=== PATIENT | female | born 1960 | race Caucasian/White ===

== ENCOUNTER 2016-12-09 07:44 | Emergency (ER) | payer OTHER ==
[~2016-12-09] VITALS: Ht 165.1 cm; Wt 78.9 kg
[~2016-12-09 07:44] MED LIST: ACYC400T PO; AMLO5TAB2 PO; AMOX1TAB61 PO; GABA-587 PO; LURA40TA PO; OMEP40CA5 PO; SERT100T PO; TRIA1CAP3 PO
[2016-12-09 07:52] VITALS: BP 133/78
[2016-12-09] MEDS ORDERED: ACETAMINOPHEN 500 MG TABLET PO ONE (08:15)
--- NOTE | 2016-12-09 08:30 | PHYS DOC ---
Past Medical History Past Medical History: Anxiety, Bipolar, Depression, Fibromyalgia, Hypertension , Hepatitis, Migraines Additional Past Medical Histor: HEP C, PTSD Past Surgical History: Appendectomy, Hysterectomy Smoking: Less than 1pk/day Alcohol Use: Rarely Drug Use: None Adult General Chief Complaint Chief Complaint: ANKLE PROBLEM HPI HPI Patient is a 56 year old female who presents with left ankle pain after falling yesterday. She was carrying a storage bin when her leg gave out and she landed on her ankle. She has been able to bear weight minimally and walk with a limp. She denies any other injuries with the fall. She does not have any numbness or tingling in the toes. Her PCP is Dr. Cesar Chin. Review of Systems Review of Systems Constitutional: Denies fever or chills. [] Musculoskeletal: Denies back pain. Reports left ankle pain and swelling. Integument: Denies rash or skin lesions. Reports ecchymosis of the left ankle. Neurologic: Denies headache, focal weakness or sensory changes. [] Current Medications Current Medications Current Medications Medications (Trade) Dose Ordered Sig/Allison Start Time Stop Time Status Last Admin Dose Admin Acetaminophen (Tylenol) 1,000 mg 1X ONCE 12/09/16 08:15 12/09/16 08:16 DC Allergies Allergies Allergies Coded Allergies Type Severity Reaction Last Updated Verified Sulfa (Sulfonamide Antibiotics) Allergy Intermediate 03/06/16 Yes Physical Exam Physical Exam Constitutional: Well developed, well nourished, no acute distress, non-toxic appearance. [] HENT: Normocephalic, atraumatic, oropharynx moist. [] Eyes: PERRLA, EOMI, conjunctiva normal, no discharge. [] Skin: Warm, dry, no erythema, no rash. There is ecchymosis and edema over the left lateral malleolus without laceration or abrasion. Extremities: Left lateral malleolus tenderness, ROM intact, moderate left lateral malleolus edema. 2+ pedal pulses. Less than 2 second capillary refill. Light touch sensation intact distally. There is no tenderness over the base of the 5th metatarsal or proximal fibula. Neurologic: Alert and oriented X 3, normal motor function, normal sensory function, no focal deficits noted. [] Psychologic: Affect normal, judgement normal, mood normal. [] Current Patient Data Vital Signs Vital Signs Date Time Temp Pulse Resp B/P Pulse Ox O2 Delivery O2 Flow Rate FiO2 12/09/16 07:52 97.8 94 18 97 Room Air 97.8 EKG EKG [] Radiology/Procedures Radiology/Procedures REASON: fall PROCEDURE: ANKLE LEFT 3V EXAM: Left ankle 3 views. HISTORY: Fall with left ankle pain/swelling COMPARISON: None. FINDINGS: Three views of the left ankle are obtained. There is a small avulsion fracture fragment at the tip of the lateral malleolus with overlying soft tissue swelling. Alignment is normal. Joint spaces are maintained. IMPRESSION: 1. Small nondisplaced avulsion fracture at the tip of the lateral malleolus. Course & Med Decision Making Course & Med Decision Making Pertinent Labs and Imaging studies reviewed. (See chart for details) Patient presents with left ankle pain after fall yesterday. On exam, she has swelling, ecchymosis, and tenderness over the lateral malleolus. She is neurovascularly intact without evidence of compartment syndrome. X-ray shows an avulsion fracture of the distal fibula. She is placed in an Ortho-Glass stirrup splint by ED RN. I examined the patient after splint application and she remains neurovascularly intact without evidence of compartment syndrome. She is given crutches for assistance with ambulation. She is discharged home with prescription for Mobile for pain. She is given contact information for orthopedics for follow-up. Return precautions were discussed. She verbalizes understanding and agrees with plan. Dragon Disclaimer Dragon Disclaimer This electronic medical record was generated, in whole or in part, using a voice recognition dictation system. Departure Departure Impression: Primary Impression: Avulsion fracture of distal end of fibula Disposition: 01 HOME, SELF-CARE Condition: STABLE Referrals: CESAR CHIN MD (PCP) SCOUT METZGER MD Patient Instructions: Ankle Fracture, [id number], Cast or Splint Care, Easy- to-Read Additional Instructions: Your xray shows a broken bone in the left ankle. You have been placed in a splint. Please keep the splint in place until you follow up with the orthopedic doctor. Please keep the splint dry. Getting it wet will cause it to lose its shape. You may adjust the wrap around the splint if it gets too tight. Please use the provided crutches to help with walking to keep your weight off of the left leg. Please take the prescribed pain medication as directed. Do not drive or operate heavy machinery while taking pain medication. Please follow up with the orthopedic doctor listed below. Return to the emergency department if you have any new or concerning symptoms. Scripts Hydrocodone/Apap 5-325 (Mobile 5-325 Tablet)1 Each Tablet1 Tab PO PRN Q6HRS PRN PAIN #20 TAB Prov:BHAVANI WILHELM 12/09/16 BHAVANI WILHELM Dec 09, 2016 08:30
--- NOTE | 2016-12-09 08:33 | RAD ---
EXAM: Left ankle 3 views. HISTORY: Fall with left ankle pain/swelling COMPARISON: None. FINDINGS: Three views of the left ankle are obtained. There is a small avulsion fracture fragment at the tip of the lateral malleolus with overlying soft tissue swelling. Alignment is normal. Joint spaces are maintained. IMPRESSION: 1. Small nondisplaced avulsion fracture at the tip of the lateral malleolus.
[2016-12-09] MEDS ORDERED: HYDR-971 PO (08:49)
== END 2016-12-09 09:17 | disposition home or self-care (01) ==
LOC: ER 07:44
DX: S82.65XA Nondisplaced fracture of lateral malleolus of left fibula, initial encounter for closed fracture (principal); M79.7 Fibromyalgia; I10 Essential (primary) hypertension; G43.909 Migraine, unspecified, not intractable, without status migrainosus; F31.9 Bipolar disorder, unspecified; F17.200 Nicotine dependence, unspecified, uncomplicated; F43.10 Post-traumatic stress disorder, unspecified; Z86.19 Personal history of other infectious and parasitic diseases; Z90.710 Acquired absence of both cervix and uterus; Z88.2 Allergy status to sulfonamides; W18.39XA Other fall on same level, initial encounter; Y93.89 Activity, other specified; Y99.8 Other external cause status; Y92.89 Other specified places as the place of occurrence of the external cause
CPT/HCPCS: 29515; 73610; 99284-25

== ENCOUNTER 2016-12-17 14:17 | Emergency (ER) | payer OTHER ==
[~2016-12-17] VITALS: Ht 165.1 cm; Wt 79.4 kg
[~2016-12-17 14:17] MED LIST changes: +HYDR-971 PO
[2016-12-17 14:19] VITALS: BP 121/87
--- NOTE | 2016-12-17 15:11 | ED.ADGEN ---
Past Medical History Past Medical History: Anxiety, Bipolar, Depression, Fibromyalgia, Hypertension , Hepatitis, Migraines Additional Past Medical Histor: HEP C, PTSD Past Surgical History: Appendectomy, Hysterectomy Alcohol Use: Rarely Drug Use: None Physician Documentation Physician Documentation LWOT before I was able to see patient. DEVONTE GREEN MD Dec 17, 2016 15:11
== END 2016-12-17 15:11 | disposition left against medical advice (07) ==
LOC: ER 14:17
DX: G43.909 Migraine, unspecified, not intractable, without status migrainosus (principal); Z53.21 Procedure and treatment not carried out due to patient leaving prior to being seen by health care provider

== ENCOUNTER 2016-12-17 16:45 | Emergency (ER) | payer OTHER ==
[2016-12-17 14:19] VITALS: BP 121/87
== END 2016-12-17 17:32 | disposition left against medical advice (07) ==
LOC: ER 16:45
DX: G43.909 Migraine, unspecified, not intractable, without status migrainosus (principal); Z53.21 Procedure and treatment not carried out due to patient leaving prior to being seen by health care provider

== ENCOUNTER 2016-12-28 15:30 | Emergency (ER) | payer OTHER ==
[~2016-12-28] VITALS: Ht 165.1 cm; Wt 81.6 kg
[2016-12-28] MEDS ORDERED: DIPHENHYDRAMINE 50 MG/ML VIAL IVP ONE (16:45)
[2016-12-28] MEDS ORDERED: KETOROLAC TROMETHAMINE 30 MG/ML SYRINGE. IV ONE (16:45)
[2016-12-28] MEDS ORDERED: DEXAMETHASONE SOD PHOS 20 MG/5 ML VIAL. IV ONE (16:45)
[2016-12-28] MEDS ORDERED: METOCLOPRAMIDE HCL 10 MG/2 ML VIAL. IV ONE (16:45)
[2016-12-28] MEDS ORDERED: IV NORMAL SALINE 1000ML BAG 1,000 ML IV ONE (16:45)
[2016-12-28 17:37] VITALS: BP 138/65
--- NOTE | 2016-12-28 17:41 | PHYS DOC ---
Past Medical History Past Medical History: Anxiety, Bipolar, Depression, Fibromyalgia, Hypertension , Hepatitis, Migraines Additional Past Medical Histor: HEP C, PTSD Past Surgical History: Appendectomy, Hysterectomy Alcohol Use: Rarely Drug Use: None Adult General Chief Complaint Chief Complaint: HEADACHE HPI HPI This is a 56-year-old female who is presenting with severe migraine headache with typical features of her usual migraine headaches in which she states she has pain in her bilateral temporal area and has photophobia with nausea and vomiting. She states her headache has been there for the last several days. She tried taking 800 mg of Motrin every 6 hours without relief. Upon my initial evaluation, she states her pain is a 9 out of 10 but does not appear to be in any acute distress. Review of Systems Review of Systems Constitutional: Denies fever or chills [] Eyes: Denies change in visual acuity, redness, or eye pain [] HENT: Denies nasal congestion or sore throat [] Respiratory: Denies cough or shortness of breath [] Cardiovascular: No additional information not addressed in HPI [] GI: Denies abdominal pain, nausea, vomiting, bloody stools or diarrhea [] : Denies dysuria or hematuria [] Musculoskeletal: Denies back pain or joint pain [] Integument: Denies rash or skin lesions [] Neurologic: Has headache, denies focal weakness or sensory changes [] Endocrine: Denies polyuria or polydipsia [] Current Medications Current Medications Current Medications Medications (Trade) Dose Ordered Sig/Allison Start Time Stop Time Status Last Admin Dose Admin Dexamethasone Sodium Phosphate (Decadron) 10 mg 1X ONCE 12/28/16 16:45 12/28/16 16:46 DC 12/28/16 17:21 10 MG Diphenhydramine HCl (Benadryl) 25 mg 1X ONCE 12/28/16 16:45 12/28/16 16:46 DC 12/28/16 17:18 25 MG Ketorolac Tromethamine (Toradol) 30 mg 1X ONCE 12/28/16 16:45 12/28/16 16:46 DC 12/28/16 17:20 30 MG Metoclopramide HCl 10 mg 10 mg 1X ONCE 12/28/16 16:45 12/28/16 16:46 DC 12/28/16 17:18 10 MG Sodium Chloride (Iv Sodium Chloride 0.9% 1000ml Bag) 1,000 ml @ 1,000 mls/hr 1X ONCE 12/28/16 16:45 12/28/16 17:44 12/28/16 17:16 1,000 MLS/HR Allergies Allergies Allergies Coded Allergies Type Severity Reaction Last Updated Verified Sulfa (Sulfonamide Antibiotics) Allergy Intermediate 03/06/16 Yes Physical Exam Physical Exam Constitutional: Well developed, well nourished, no acute distress, non-toxic appearance. [] HENT: Normocephalic, atraumatic, bilateral external ears normal, oropharynx moist, no oral exudates, nose normal. [] Eyes: PERRLA, EOMI, conjunctiva normal, no discharge. [] Neck: Normal range of motion, no tenderness, supple, no stridor. [] Cardiovascular:Heart rate regular rhythm, no murmur [] Lungs & Thorax: Bilateral breath sounds clear to auscultation [] Abdomen: Bowel sounds normal, soft, no tenderness, no masses, no pulsatile masses. [] Skin: Warm, dry, no erythema, no rash. [] Back: No tenderness, no CVA tenderness. [] Extremities: No tenderness, no cyanosis, no clubbing, ROM intact, no edema. [] Neurologic: Alert and oriented X 3, normal motor function, normal sensory function, no focal deficits noted. [] Psychologic: Affect normal, judgement normal, mood normal. [] Current Patient Data Vital Signs Vital Signs Date Time Temp Pulse Resp B/P Pulse Ox O2 Delivery O2 Flow Rate FiO2 12/28/16 15:40 98.1 79 18 147/102 96 Room Air 98.1 EKG EKG [] Radiology/Procedures Radiology/Procedures [] Course & Med Decision Making Course & Med Decision Making Pertinent Labs and Imaging studies reviewed. (See chart for details) 56 yo female who presents with usual migraine type headache that she's had before. A migraine cocktail was given including a dose of IV Toradol, IV Benadryl, IV Reglan and IV Decadron with fluid bolus. On my reassessment, the patient's pain is vastly improved and she feels couple going home. I will be discharging her home with strict instruction remain in a quiet dark room for the next 24 hours and to continue taking Motrin for any headache symptoms. Dragon Disclaimer Dragon Disclaimer This electronic medical record was generated, in whole or in part, using a voice recognition dictation system. Departure Departure Impression: Primary Impression: Migraine Disposition: 01 HOME, SELF-CARE Admitting Physician: Other Condition: STABLE Referrals: CESAR RUVALCABA MD (PCP) Patient Instructions: Migraine Headache, [id number] Additional Instructions: Please follow up with your primary doctor in the next 2-3 days for your migraine headache. Continue to take motrin for your headache. Return to the ER if you develop any worsening of your symptoms. KENJI NUNN DO Dec 28, 2016 17:41
== END 2016-12-28 17:49 | disposition home or self-care (01) ==
LOC: ER 15:30
DX: G43.909 Migraine, unspecified, not intractable, without status migrainosus (principal); F43.10 Post-traumatic stress disorder, unspecified; F31.9 Bipolar disorder, unspecified; F41.9 Anxiety disorder, unspecified; I10 Essential (primary) hypertension; M79.7 Fibromyalgia; Z86.19 Personal history of other infectious and parasitic diseases; Z90.710 Acquired absence of both cervix and uterus; Z90.49 Acquired absence of other specified parts of digestive tract; Z88.2 Allergy status to sulfonamides
CPT/HCPCS: 96361; 96374; 96375; 99284; J1100; J1200; J1885; J2765; J7030

== ENCOUNTER → 2017-01-06 | Outpatient (CLI) | payer OTHER ==
[2016-12-28 17:37] VITALS: BP 138/65
--- NOTE | 2017-01-06 14:42 | KCIC ---
PROCEDURE CT of the left wrist HISTORY Left wrist pain chronically. Prior surgery 1997. COMPARISON None TECHNIQUE Standard noncontrast imaging is performed. Exposure: One or more of the following individualized dose reduction techniques were utilized for this exam: 1. Automated exposure control. 2. Adjustment of the mA and/or kV according to patient size. 3. Use of iterative reconstruction technique. FINDINGS No evidence of aggressive bone destruction. No acute fracture. Joint spaces and alignment appear intact. No obvious soft tissue abnormality. There is a small lucency at the ulnar styloid as well as a small lucency within the 1st metacarpal head, most compatible with benign cysts. Mild spurring at the 1st metacarpophalangeal joint IMPRESSION No acute abnormality. Electronically signed by: Dann Pleitez MD (Jan 06, 2017 14:41:03)
== END | disposition home or self-care (01) ==
LOC: KCIC CT 10:01
PROVIDERS: ATTEND Family Medicine
DX: M25.532 Pain in left wrist (principal)
CPT/HCPCS: 73200

== ENCOUNTER 2017-04-04 17:43 | Inpatient (IN) | payer OTHER ==
[~2017-04-04] VITALS: Ht 165.1 cm; Wt 93.2 kg
[2017-04-04] MEDS ORDERED: NALOXONE 0.4 MG/ML VIAL. IV ONE (18:00)
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
[2017-04-04 18:55] LABS: BASO # 0.1 x10^3/uL (0.0-0.2); BASO % 1 % (0-3); EOS % 1 % (0-3); HEMOGLOBIN 12.4 g/dL (12.0-15.5); LYMPH % 39 % (24-48); MEAN CORPUSCULAR HEMOGLOBIN 35 pg (25-35); MEAN CORPUSCULAR HGB CONC 35 g/dL (31-37); MEAN CORPUSCULAR VOLUME 98 fL (79-100); MONO % 7 % (0-9); NEUT % 52 % (31-73); PLATELET COUNT 474 x10^3/uL (140-400); RED BLOOD COUNT 3.57 x10^6/uL (3.50-5.40); RED CELL DISTRIBUTION WIDTH 14.4 % (11.5-14.5); WHITE BLOOD COUNT 7.7 x10^3/uL (4.0-11.0)
[2017-04-04 19:07] LABS: CALCIUM 8.7 mg/dL (8.5-10.1); CREATININE 1.7 mg/dL (0.6-1.0); GFR 31.2; POTASSIUM 4.5 mmol/L (3.5-5.1)
[2017-04-04 19:12] LABS: ALBUMIN 3.6 g/dL (3.4-5.0); ALBUMIN/GLOBULIN RATIO 1.1 (1.0-1.7); MAGNESIUM 2.1 mg/dL (1.8-2.4); TOTAL BILIRUBIN 0.2 mg/dL (0.2-1.0)
[2017-04-04] MEDS ORDERED: ONDANSETRON PF 4 MG/2 ML VIAL. ONE (19:34)
[2017-04-04] MEDS ORDERED: IV NORMAL SALINE 1000ML BAG 1,000 ML IV ONE (19:45)
[2017-04-04] MEDS ORDERED: ONDANSETRON PF 4 MG/2 ML VIAL. IV ONE (19:45)
--- NOTE | 2017-04-04 20:18 | RAD ---
CT HEAD INDICATION: Altered mental status COMPARISON: None Available. TECHNIQUE: 5 mm contiguous axial images were obtained from the skull base to the vertex in both bone and soft tissue algorithm. Exposure: One or more of the following individualized dose reduction techniques were utilized for this examination: 1. Automated exposure control 2. Adjustment of the mA and/or kV according to patient size 3. Use of iterative reconstruction technique FINDINGS: Mild bilateral periventricular white matter hypodensities likely chronic small vessel ischemic disease. No evidence of acute intracranial hemorrhage. No extra-axial fluid collections. No mass effect or midline shift. Ventricular size is appropriate. Basal cisterns are patent. No fractures identified.Daniels-white differentiation is preserved.Globes and orbits are within normal limits. Paranasal sinuses and mastoid air cells are clear. IMPRESSION: No acute intracranial findings. Electronically signed by: Kaushal Good MD (04/04/2017 8:14 PM)
--- NOTE | 2017-04-04 21:02 | ACF ---
Admission Forms Criteria PAIN MANAGEMENT [facility] Clinical Indications for Admission to Inpatient Care (Place 'X' for any and all applicable criteria): Hospital admission is needed for appropriate care of the patient because of 1 or more of the following are present (1)(2)(3)(4)(5): [ ]I. Severe pain requiring acute inpatient management as indicated by 1 or more of the following (2)(5)(10): [ ]a) Continuous or frequent (eg, every 2 to 4 hours) parenteral analgesics required [A] [ ]b) Necessity (ie, alternative approaches not effective) for analgesic regimen that can only be performed or initiated in inpatient setting [X]II. Pain causing debilitation to the point of inability to function or be supported at any other level of care [ ]III. Severe side effects from pain medications as indicated by ANY ONE of the following (12)(13)(14)(15): [ ]a) Uncontrollable seizures [ ]b) Cardiac arrhythmias of immediate concern [ ]c) Dehydration that is severe or persistent [ ]d) Vomiting that is severe or persistent [ ]e) Altered mental status that is severe or persistent [ ]f) Obstipation with inadequate GI function to maintain nutrition The original [employer] content created by [employer] has been revised. The portions of the content which have been revised are identified through the use of italic text or in bold, and [employer] has neither reviewed nor approved the modified material. All other unmodified content is copyright [employer]. Please see references footnoted in the original [employer] edition 2016 Admission Criteria Met?: Yes SHAYE JOHNS Apr 04, 2017 21:02
[2017-04-04] MEDS ORDERED: NALOXONE 0.4 MG/ML VIAL. IV PRN (21:30)
[2017-04-04] MEDS ORDERED: ONDANSETRON PF 4 MG/2 ML VIAL. IV PRN (21:30)
[2017-04-04 21:51] VITALS: BP 93/45
[2017-04-04] MEDS: IV NORMAL SALINE 1000ML BAG 1,000 ML IV SCH (22:08)
[2017-04-04] MEDS: fentaNYL PF VIAL 100 MCG/2 ML VIAL IV PRN (22:09)
[2017-04-04 22:22] LABS: BILIRUBIN,URINE NEGATIVE (NEG); GLUCOSE,URINE NEGATIVE (NEG); NITRITE,URINE NEGATIVE (NEG); PH,URINE 5.5; PROTEIN,URINE NEGATIVE (NEG-TRACE); UROBILINOGEN,URINE 0.2 mg/dL (0.2 mg/dL)
[2017-04-04 22:30] LABS: BACTERIA,URINE FEW /HPF (0-FEW); RBC,URINE 0 /HPF (0-2); SQUAMOUS EPITHELIAL CELL,UR FEW /LPF; WBC,URINE OCC /HPF (0-4)
[2017-04-04 22:31] LABS: BARBITURATES NEG (NEG); BENZODIAZEPINES POS (NEG); CANNABINOIDS POS (NEG); COCAINE NEG (NEG); METHADONE NEG (NEG); OPIATES POS (NEG); PHENCYCLIDINE NEG (NEG)
[2017-04-04 23:00] VITALS: BP 68/44
[2017-04-05] VITALS (8 sets, daily range): BP systolic 87–167; BP diastolic 52–91
[2017-04-05] MEDS ORDERED: MIRT30TA3 PO (00:57)
[2017-04-05] MEDS ORDERED: OXYC-323 PO (00:57)
[2017-04-05] MEDS ORDERED: LOSA50TA6 PO (00:57)
[2017-04-05] MEDS ORDERED: ONDA4TAB12 PO (00:57)
[2017-04-05] MEDS ORDERED: POLY255P PO (00:57)
[2017-04-05] MEDS ORDERED: AMLO5TAB2 PO (00:57)
[2017-04-05] MEDS ORDERED: BACL10TA PO (00:57)
[2017-04-05] MEDS ORDERED: HYDR2TAB31 PO (00:57)
[2017-04-05] MEDS ORDERED: IBUP-1060 PO (00:57)
[2017-04-05] MEDS ORDERED: NORT25CA PO (01:32)
[2017-04-05] MEDS: fentaNYL PF VIAL 100 MCG/2 ML VIAL IV PRN ×2 (04:20→08:34)
--- NOTE | 2017-04-05 06:40 | EKG ---
[facility] [address] [place] [address] Test Date: 2017-04-04 Test Time: 18:11:21 Pat Name: BALTAZAR GOODEN Department: Room: Gender: F Ux Specialist: : 1960 Requested By: LOUIS MAR Order Number: [id number] Reading MD: Measurements Intervals [place] Rate: 73 P: 34 MO: 138 QRS: 16 QRSD: 86 T: 7 QT: 352 QTc: 391 Interpretive Statements SINUS RHYTHM QRS(T) CONTOUR ABNORMALITY CANNOT RULE OUT ANTEROSEPTAL MYOCARDIAL DAMAGE RI6.01 Unconfirmed report No previous ECG available for comparison
--- NOTE | 2017-04-05 08:03 | RAD ---
Indication difficulty breathing. A single view of the chest was obtained. No prior plain film imaging of the chest is available. Heart size and pulmonary vessels are normal. The lungs are clear of acute infiltrates. Significant pleural fluid is not seen. There is no pneumothorax. The visualized bony structures appear grossly intact. IMPRESSION: No acute or focal process is seen in the chest
[2017-04-05] MEDS: IV NORMAL SALINE 1000ML BAG 1,000 ML IV SCH (08:31)
--- NOTE | 2017-04-05 08:51 | PDOC1 ---
History and Physical Date of Admission Date of Admission DATE: 04/05/17 TIME: 08:49 Current Problem List Problem List Problems Medical Problems: (1) Dehydration Status: Acute (2) Intractable pain Status: Acute (3) Narcotic poisoning Status: Acute Problems: Current Medications Current Medications Current Medications Naloxone HCl (Narcan) 0.4 mg 1X ONCE IV Last administered on 04/04/17 19:23; Start 04/04/17 at 18:00; Stop 04/04/17 at 18:10; Status DC Ondansetron HCl (Zofran) 4 mg 1X ONCE IV Last administered on 04/04/17 19:45; Start 04/04/17 at 19:45; Stop 04/04/17 at 19:46; Status DC Ondansetron HCl (Zofran) 4 mg STK-MED ONCE .ROUTE ; Start 04/04/17 at 19:34; Stop 04/04/17 at 19:35; Status DC Sodium Chloride 1,000 ml @ 1,000 mls/hr 1X ONCE IV Last administered on 19:45; Start 04/04/17 at 19:45; Stop 04/04/17 at 20:44; Status DC Ondansetron HCl (Zofran) 4 mg PRN Q8HRS PRN IV NAUSEA/VOMITING; Start 04/04/17 at 21:30; Stop 04/05/17 at 21:29 Fentanyl Citrate (Fentanyl 2ml Vial) 25 mcg PRN Q1HR PRN IV PAIN Last administered on 04/05/17 08:34; Start 04/04/17 at 21:30; Stop 04/05/17 at 21:29 Sodium Chloride 1,000 ml @ 100 mls/hr Q10H IV Last administered on 04/05/17 08 :31; Start 04/04/17 at 21:30; Stop 04/05/17 at 21:29 Naloxone HCl (Narcan) 0.4 mg PRN Q2MIN PRN IV SEE COMMENTS; Start 04/04/17 at 21 :30 Ondansetron HCl (Zofran Odt) 4 mg PRN Q6HRS PRN PO NAUSEA; Start 04/05/17 at 08: 45 Ibuprofen (Motrin) 800 mg PRN Q8HRS PRN PO INFLAMMATION; Start 04/05/17 at 09:00 Pantoprazole Sodium (Protonix) 40 mg DAILYAC PO ; Start 04/05/17 at 09:30 Sertraline HCl (Zoloft) 100 mg DAILY PO ; Start 04/05/17 at 09:30 Hydromorphone HCl (Dilaudid) 2 mg PRN Q4HRS PRN PO PAIN; Start 04/05/17 at 08:45 Active Scripts Active Reported Nortriptyline Hcl 25 Mg Capsule 1 Cap PO DAILY 30 Days Ondansetron Odt (Ondansetron) 4 Mg Tab.rapdis 1 Tab PO PRN Q6-8HRS Percocet 5-325 Mg Tablet (Oxycodone/Acetaminophen) 1 Each Tablet 1 Tab PO PRN Q6HRS PRN Mirtazapine 30 Mg Tablet 30 Mg PO DAILY PRN Ibuprofen 800 Mg Tablet 800 Mg PO PRN Q6HRS PRN Baclofen 10 Mg Tablet 10 Mg PO TID Polyethylene Glycol 3350 255 Gm Powder 17 Gm PO DAILY Amlodipine Besylate 5 Mg Tablet 5 Mg PO DAILY Losartan Potassium 50 Mg Tablet 50 Mg PO DAILY Dilaudid (Hydromorphone Hcl) 2 Mg Tablet 4 Mg PO Q3HRS Zoloft (Sertraline Hcl) 100 Mg Tablet 100 Mg PO DAILY Triamterene-Hctz 37.5-25 Mg Cp (Triamterene/Hydrochlorothiazid) 1 Each Capsule 1 Cap PO DAILY Acyclovir 400 Mg Tablet 1 Tab PO BID Omeprazole 40 Mg Capsule.dr 1 Cap PO DAILY Gabapentin 400 Mg Capsule 600 Mg PO TID Allergies Allergies: Coded Allergies: Sulfa (Sulfonamide Antibiotics) (Verified Allergy, Intermediate, 03/06/16) Vitals Vitals Vital Signs Date Time Temp Pulse Resp B/P (MAP) Pulse Ox O2 Delivery O2 Flow Rate FiO2 04/05/17 08:34 65 99/52 (68) 95 Nasal Cannula 3.0 04/05/17 07:00 97.9 16 97.9 Labs Labs Laboratory Tests Test 04/04/17 18:48 04/04/17 22:15 White Blood Count 7.7 x10^3/uL (4.0-11.0) Red Blood Count 3.57 x10^6/uL (3.50-5.40) Hemoglobin 12.4 g/dL (12.0-15.5) Hematocrit 35.0 % (36.0-47.0) Mean Corpuscular Volume 98 fL (79-100) Mean Corpuscular Hemoglobin 35 pg (25-35) Mean Corpuscular Hemoglobin Concent 35 g/dL (31-37) Red Cell Distribution Width 14.4 % (11.5-14.5) Platelet Count 474 x10^3/uL (140-400) Neutrophils (%) (Auto) 52 % (31-73) Lymphocytes (%) (Auto) 39 % (24-48) Monocytes (%) (Auto) 7 % (0-9) Eosinophils (%) (Auto) 1 % (0-3) Basophils (%) (Auto) 1 % (0-3) Neutrophils # (Auto) 4.0 x10^3uL (1.8-7.7) Lymphocytes # (Auto) 3.0 x10^3/uL (1.0-4.8) Monocytes # (Auto) 0.5 x10^3/uL (0.0-1.1) Eosinophils # (Auto) 0.1 x10^3/uL (0.0-0.7) Basophils # (Auto) 0.1 x10^3/uL (0.0-0.2) Sodium Level 137 mmol/L (136-145) Potassium Level 4.5 mmol/L (3.5-5.1) Chloride Level 102 mmol/L (98-107) Carbon Dioxide Level 26 mmol/L (21-32) Anion Gap 9 (6-14) Blood Urea Nitrogen 16 mg/dL (7-20) Creatinine 1.7 mg/dL (0.6-1.0) Estimated GFR (Cockcroft-Gault) 31.2 BUN/Creatinine Ratio 9 (6-20) Glucose Level 95 mg/dL (70-99) Calcium Level 8.7 mg/dL (8.5-10.1) Magnesium Level 2.1 mg/dL (1.8-2.4) Total Bilirubin 0.2 mg/dL (0.2-1.0) Aspartate Amino Transf (AST/SGOT) 14 U/L (15-37) Alanine Aminotransferase (ALT/SGPT) 20 U/L (14-59) Alkaline Phosphatase 91 U/L (46-116) Total Protein 7.0 g/dL (6.4-8.2) Albumin 3.6 g/dL (3.4-5.0) Albumin/Globulin Ratio 1.1 (1.0-1.7) Urine Collection Type Unknown Urine Color Yellow Urine Clarity Clear Urine pH 5.5 Urine Specific [place] 1.010 Urine Protein Negative mg/dL (NEG-TRACE) Urine Glucose (UA) Negative mg/dL (NEG) Urine Ketones (Stick) Negative mg/dL (NEG) Urine Blood Negative (NEG) Urine Nitrite Negative (NEG) Urine Bilirubin Negative (NEG) Urine Urobilinogen Dipstick 0.2 mg/dL (0.2 mg/dL) Urine Leukocyte Esterase Negative (NEG) Urine RBC 0 /HPF (0-2) Urine WBC Occ /HPF (0-4) Urine Squamous Epithelial Cells Few /LPF Urine Bacteria Few /HPF (0-FEW) Urine Hyaline Casts Few /HPF Urine Mucus Slight /LPF Urine Opiates Screen Pos (NEG) Urine Methadone Screen Neg (NEG) Urine Barbiturates Neg (NEG) Urine Phencyclidine Screen Neg (NEG) Urine Amphetamine/Methamphetamine Neg (NEG) Urine Benzodiazepines Screen Pos (NEG) Urine Cocaine Screen Neg (NEG) Urine Cannabinoids Screen Pos (NEG) Urine Ethyl Alcohol Neg (NEG) Laboratory Tests Test 04/04/17 18:48 04/04/17 22:15 White Blood Count 7.7 x10^3/uL (4.0-11.0) Red Blood Count 3.57 x10^6/uL (3.50-5.40) Hemoglobin 12.4 g/dL (12.0-15.5) Hematocrit 35.0 % (36.0-47.0) Mean Corpuscular Volume 98 fL (79-100) Mean Corpuscular Hemoglobin 35 pg (25-35) Mean Corpuscular Hemoglobin Concent 35 g/dL (31-37) Red Cell Distribution Width 14.4 % (11.5-14.5) Platelet Count 474 x10^3/uL (140-400) Neutrophils (%) (Auto) 52 % (31-73) Lymphocytes (%) (Auto) 39 % (24-48) Monocytes (%) (Auto) 7 % (0-9) Eosinophils (%) (Auto) 1 % (0-3) Basophils (%) (Auto) 1 % (0-3) Neutrophils # (Auto) 4.0 x10^3uL (1.8-7.7) Lymphocytes # (Auto) 3.0 x10^3/uL (1.0-4.8) Monocytes # (Auto) 0.5 x10^3/uL (0.0-1.1) Eosinophils # (Auto) 0.1 x10^3/uL (0.0-0.7) Basophils # (Auto) 0.1 x10^3/uL (0.0-0.2) Sodium Level 137 mmol/L (136-145) Potassium Level 4.5 mmol/L (3.5-5.1) Chloride Level 102 mmol/L (98-107) Carbon Dioxide Level 26 mmol/L (21-32) Anion Gap 9 (6-14) Blood Urea Nitrogen 16 mg/dL (7-20) Creatinine 1.7 mg/dL (0.6-1.0) Estimated GFR (Cockcroft-Gault) 31.2 BUN/Creatinine Ratio 9 (6-20) Glucose Level 95 mg/dL (70-99) Calcium Level 8.7 mg/dL (8.5-10.1) Magnesium Level 2.1 mg/dL (1.8-2.4) Total Bilirubin 0.2 mg/dL (0.2-1.0) Aspartate Amino Transf (AST/SGOT) 14 U/L (15-37) Alanine Aminotransferase (ALT/SGPT) 20 U/L (14-59) Alkaline Phosphatase 91 U/L (46-116) Total Protein 7.0 g/dL (6.4-8.2) Albumin 3.6 g/dL (3.4-5.0) Albumin/Globulin Ratio 1.1 (1.0-1.7) Urine Collection Type Unknown Urine Color Yellow Urine Clarity Clear Urine pH 5.5 Urine Specific [place] 1.010 Urine Protein Negative mg/dL (NEG-TRACE) Urine Glucose (UA) Negative mg/dL (NEG) Urine Ketones (Stick) Negative mg/dL (NEG) Urine Blood Negative (NEG) Urine Nitrite Negative (NEG) Urine Bilirubin Negative (NEG) Urine Urobilinogen Dipstick 0.2 mg/dL (0.2 mg/dL) Urine Leukocyte Esterase Negative (NEG) Urine RBC 0 /HPF (0-2) Urine WBC Occ /HPF (0-4) Urine Squamous Epithelial Cells Few /LPF Urine Bacteria Few /HPF (0-FEW) Urine Hyaline Casts Few /HPF Urine Mucus Slight /LPF Urine Opiates Screen Pos (NEG) Urine Methadone Screen Neg (NEG) Urine Barbiturates Neg (NEG) Urine Phencyclidine Screen Neg (NEG) Urine Amphetamine/Methamphetamine Neg (NEG) Urine Benzodiazepines Screen Pos (NEG) Urine Cocaine Screen Neg (NEG) Urine Cannabinoids Screen Pos (NEG) Urine Ethyl Alcohol Neg (NEG) VTE Prophylaxis Ordered VTE Prophylaxis Devices: No VTE Pharmacological Prophylaxi: No Assessment/Plan Assessment/Plan dilaudid od, was on 4 mg q3h from [facility]- bp low, meds held, saline, less dilaudid, repeat bmp re creat 1.7, likely dc 04/06 CESAR RUVALCABA MD Apr 05, 2017 08:51
[2017-04-05] MEDS: PANTOPRAZOLE 40 MG TABLET.DR. PO SCH (09:00)
[2017-04-05] MEDS: IBUPROFEN 800 MG TABLET. PO PRN (09:00)
[2017-04-05] MEDS: SERTRALINE 50 MG TABLET. PO SCH (09:00)
[2017-04-05] MEDS ORDERED: IV NORMAL SALINE 1000ML BAG 1,000 ML IV SCH (09:30)
[2017-04-05 09:32] LABS: BASO % 1 % (0-3); EOS % 2 % (0-3); HEMATOCRIT 36.4 % (36.0-47.0); HEMOGLOBIN 12.5 g/dL (12.0-15.5); LYMPH # 2.7 x10^3/uL (1.0-4.8); LYMPH % 35 % (24-48); MEAN CORPUSCULAR HEMOGLOBIN 34 pg (25-35); MEAN CORPUSCULAR HGB CONC 34 g/dL (31-37); MEAN CORPUSCULAR VOLUME 99 fL (79-100); MONO % 7 % (0-9); NEUT % 56 % (31-73); PLATELET COUNT 428 x10^3/uL (140-400); RED BLOOD COUNT 3.66 x10^6/uL (3.50-5.40); RED CELL DISTRIBUTION WIDTH 14.3 % (11.5-14.5); WHITE BLOOD COUNT 7.7 x10^3/uL (4.0-11.0)
[2017-04-05] MEDS: HYDROmorphone 2 MG TABLET PO PRN ×2 (09:36→14:41)
[2017-04-05 09:38] LABS: GFR 57.6; POTASSIUM 4.5 mmol/L (3.5-5.1)
[2017-04-05] MEDS ORDERED: ACETAMINOPHEN 325 MG TABLET. PO PRN (14:45)
[2017-04-05 19:07] LABS: CALCIUM 8.4 mg/dL (8.5-10.1); CREATININE 0.8 mg/dL (0.6-1.0); GFR 74.5
[2017-04-05] MEDS: ALPRAZolam 1 MG TABLET PO PRN (21:39)
[2017-04-05] MEDS: ONDANSETRON ODT 4 MG TAB.RAPDIS. PO PRN (21:43)
[2017-04-06 03:10] VITALS: BP 151/83
[2017-04-06] MEDS: ALPRAZolam 1 MG TABLET PO PRN (05:21)
[2017-04-06 07:00] VITALS: BP 149/79
[2017-04-06] MEDS: SERTRALINE 50 MG TABLET. PO SCH (07:59)
[2017-04-06] MEDS: PANTOPRAZOLE 40 MG TABLET.DR. PO SCH (07:59)
[2017-04-06] MEDS: IBUPROFEN 800 MG TABLET. PO PRN (08:00)
--- NOTE | 2017-04-06 09:28 | DISCH ---
DISCHARGE INSTRUCTIONS Condition on Discharge Condition on Discharge: Stable Activity After Discharge Activity Instructions for Disc: No restrictions Diet after Discharge Diet after Discharge: Regular Follow-Up Follow up with: as scheduled CESAR RUVALCABA MD Apr 06, 2017 09:28
--- NOTE | 2017-04-06 09:31 | PDOC3 ---
Discharge Summary Visit Information Date of Admission: Apr 04, 2017 Date of Discharge: Apr 06, 2017 Final Diagnosis Problems Medical Problems: (1) Dehydration Status: Acute (2) Intractable pain Status: Acute (3) Narcotic poisoning Status: Acute Brief Hospital Course Allergies Allergies Coded Allergies Type Severity Reaction Last Updated Verified Sulfa (Sulfonamide Antibiotics) Allergy Intermediate 03/06/16 Yes Vital Signs Vital Signs Date Time Temp Pulse Resp B/P (MAP) Pulse Ox O2 Delivery O2 Flow Rate FiO2 04/06/17 07:30 Room Air 04/06/17 07:00 98.8 61 20 149/79 (102) 91 98.8 04/05/17 08:34 3.0 Lab Results Laboratory Tests Test 04/04/17 18:48 04/04/17 22:15 04/05/17 08:55 04/05/17 18:40 White Blood Count 7.7 x10^3/uL (4.0-11.0) 7.7 x10^3/uL (4.0-11.0) Red Blood Count 3.57 x10^6/uL (3.50-5.40) 3.66 x10^6/uL (3.50-5.40) Hemoglobin 12.4 g/dL (12.0-15.5) 12.5 g/dL (12.0-15.5) Hematocrit 35.0 % (36.0-47.0) 36.4 % (36.0-47.0) Mean Corpuscular Volume 98 fL (79-100) 99 fL (79-100) Mean Corpuscular Hemoglobin 35 pg (25-35) 34 pg (25-35) Mean Corpuscular Hemoglobin Concent 35 g/dL (31-37) 34 g/dL (31-37) Red Cell Distribution Width 14.4 % (11.5-14.5) 14.3 % (11.5-14.5) Platelet Count 474 x10^3/uL (140-400) 428 x10^3/uL (140-400) Neutrophils (%) (Auto) 52 % (31-73) 56 % (31-73) Lymphocytes (%) (Auto) 39 % (24-48) 35 % (24-48) Monocytes (%) (Auto) 7 % (0-9) 7 % (0-9) Eosinophils (%) (Auto) 1 % (0-3) 2 % (0-3) Basophils (%) (Auto) 1 % (0-3) 1 % (0-3) Neutrophils # (Auto) 4.0 x10^3uL (1.8-7.7) 4.3 x10^3uL (1.8-7.7) Lymphocytes # (Auto) 3.0 x10^3/uL (1.0-4.8) 2.7 x10^3/uL (1.0-4.8) Monocytes # (Auto) 0.5 x10^3/uL (0.0-1.1) 0.6 x10^3/uL (0.0-1.1) Eosinophils # (Auto) 0.1 x10^3/uL (0.0-0.7) 0.1 x10^3/uL (0.0-0.7) Basophils # (Auto) 0.1 x10^3/uL (0.0-0.2) 0.0 x10^3/uL (0.0-0.2) Sodium Level 137 mmol/L (136-145) 144 mmol/L (136-145) 144 mmol/L (136-145) Potassium Level 4.5 mmol/L (3.5-5.1) 4.5 mmol/L (3.5-5.1) 4.0 mmol/L (3.5-5.1) Chloride Level 102 mmol/L (98-107) 110 mmol/L (98-107) 110 mmol/L (98-107) Carbon Dioxide Level 26 mmol/L (21-32) 29 mmol/L (21-32) 27 mmol/L (21-32) Anion Gap 9 (6-14) 5 (6-14) 7 (6-14) Blood Urea Nitrogen 16 mg/dL (7-20) 10 mg/dL (7-20) 10 mg/dL (7-20) Creatinine 1.7 mg/dL (0.6-1.0) 1.0 mg/dL (0.6-1.0) 0.8 mg/dL (0.6-1.0) Estimated GFR (Cockcroft-Gault) 31.2 57.6 74.5 BUN/Creatinine Ratio 9 (6-20) Glucose Level 95 mg/dL (70-99) 100 mg/dL (70-99) 103 mg/dL (70-99) Calcium Level 8.7 mg/dL (8.5-10.1) 8.0 mg/dL (8.5-10.1) 8.4 mg/dL (8.5-10.1) Magnesium Level 2.1 mg/dL (1.8-2.4) Total Bilirubin 0.2 mg/dL (0.2-1.0) Aspartate Amino Transf (AST/SGOT) 14 U/L (15-37) Alanine Aminotransferase (ALT/SGPT) 20 U/L (14-59) Alkaline Phosphatase 91 U/L (46-116) Total Protein 7.0 g/dL (6.4-8.2) Albumin 3.6 g/dL (3.4-5.0) Albumin/Globulin Ratio 1.1 (1.0-1.7) Urine Collection Type Unknown Urine Color Yellow Urine Clarity Clear Urine pH 5.5 Urine Specific [place] 1.010 Urine Protein Negative mg/dL (NEG-TRACE) Urine Glucose (UA) Negative mg/dL (NEG) Urine Ketones (Stick) Negative mg/dL (NEG) Urine Blood Negative (NEG) Urine Nitrite Negative (NEG) Urine Bilirubin Negative (NEG) Urine Urobilinogen Dipstick 0.2 mg/dL (0.2 mg/dL) Urine Leukocyte Esterase Negative (NEG) Urine RBC 0 /HPF (0-2) Urine WBC Occ /HPF (0-4) Urine Squamous Epithelial Cells Few /LPF Urine Bacteria Few /HPF (0-FEW) Urine Hyaline Casts Few /HPF Urine Mucus Slight /LPF Urine Opiates Screen Pos (NEG) Urine Methadone Screen Neg (NEG) Urine Barbiturates Neg (NEG) Urine Phencyclidine Screen Neg (NEG) Urine Amphetamine/Methamphetamine Neg (NEG) Urine Benzodiazepines Screen Pos (NEG) Urine Cocaine Screen Neg (NEG) Urine Cannabinoids Screen Pos (NEG) Urine Ethyl Alcohol Neg (NEG) Laboratory Tests Test 04/05/17 18:40 Sodium Level 144 mmol/L (136-145) Potassium Level 4.0 mmol/L (3.5-5.1) Chloride Level 110 mmol/L (98-107) Carbon Dioxide Level 27 mmol/L (21-32) Anion Gap 7 (6-14) Blood Urea Nitrogen 10 mg/dL (7-20) Creatinine 0.8 mg/dL (0.6-1.0) Estimated GFR (Cockcroft-Gault) 74.5 Glucose Level 103 mg/dL (70-99) Calcium Level 8.4 mg/dL (8.5-10.1) Brief Hospital Course Ms. Cabrera is a 56 old [sex] who presented with [ ]opiod narcosis- better w/ narcan- labs all ok, brief hypotension resolved off meds- feels better now, will no longer take diaudid at home Discharge Information Condition at Discharge: Improved Disposition/Orders: D/C to Home Scheduled Acyclovir (Acyclovir), 1 TAB PO BID, (Reported) Amlodipine Besylate (Amlodipine Besylate), 5 MG PO DAILY, (Reported) Baclofen (Baclofen), 10 MG PO TID, (Reported) Gabapentin (Gabapentin), 600 MG PO TID, (Reported) Hydromorphone Hcl (Dilaudid), 4 MG PO Q3HRS, (Reported) Losartan Potassium (Losartan Potassium), 50 MG PO DAILY, (Reported) Nortriptyline Hcl (Nortriptyline Hcl), 1 CAP PO DAILY, (Reported) Omeprazole (Omeprazole), 1 CAP PO DAILY, (Reported) Ondansetron (Ondansetron Odt), 1 TAB PO PRN Q6-8HRS, (Reported) Polyethylene Glycol 3350 (Polyethylene Glycol 3350), 17 GM PO DAILY, (Reported) Sertraline Hcl (Zoloft), 100 MG PO DAILY, (Reported) Triamterene/Hydrochlorothiazid (Triamterene-Hctz 37.5-25 Mg Cp), 1 CAP PO DAILY, (Reported) Scheduled PRN Ibuprofen (Ibuprofen), 800 MG PO PRN Q6HRS PRN for INFLAMMATION, (Reported) Mirtazapine (Mirtazapine), 30 MG PO DAILY PRN for INSOMNIA, (Reported) Oxycodone/Apap 5-325 (Percocet 5-325 Mg Tablet), 1 TAB PO PRN Q6HRS PRN for PAIN , (Reported) CESAR RUVALCABA MD Apr 06, 2017 09:31
[2017-04-06] MEDS: ONDANSETRON ODT 4 MG TAB.RAPDIS. PO PRN (10:09)
== END 2017-04-06 10:10 | disposition home or self-care (01) | DRG 917 ==
LOC: ER 17:43 → 4 NORTH 20:59
PROVIDERS: ADMIT Family Medicine; ATTEND Family Medicine
DX: T40.601A Poisoning by unspecified narcotics, accidental (unintentional), initial encounter (principal); G92 Toxic encephalopathy; I10 Essential (primary) hypertension; M79.7 Fibromyalgia; F43.10 Post-traumatic stress disorder, unspecified; F41.9 Anxiety disorder, unspecified; G43.909 Migraine, unspecified, not intractable, without status migrainosus; G47.00 Insomnia, unspecified; E86.0 Dehydration; I95.9 Hypotension, unspecified; Z79.899 Other long term (current) drug therapy; Z90.710 Acquired absence of both cervix and uterus; Y92.89 Other specified places as the place of occurrence of the external cause; Z90.49 Acquired absence of other specified parts of digestive tract; Z88.2 Allergy status to sulfonamides; Z86.19 Personal history of other infectious and parasitic diseases
CPT/HCPCS: 36415; 70450; 71010; 80048; 80053; 81001; 83735; 85027; 93005; 96361; 96374; 96375; A6539; G0481; J2310; J2405; J3010; J7030; Q0162; 99285-25

== ENCOUNTER → 2017-06-15 | Outpatient (CLI) | payer OTHER ==
[~2017-06-15] MED LIST changes: +BACL10TA PO; +HYDR2TAB31 PO; +IBUP-1060 PO; +LOSA50TA6 PO; +MIRT30TA3 PO; +NORT25CA PO; +ONDA4TAB12 PO; +OXYC-323 PO; +POLY255P PO
--- NOTE | 2017-06-15 11:22 | RAD ---
Left ankle, 3 views, 06/15/2017: History: Previous fracture Comparison is made to a study from 02/23/2017. There is an old fracture fragment with sclerotic margins along the tip of the lateral malleolus which appears unchanged. No new fracture or dislocation is identified. No significant arthritic change is evident. There is mild diffuse soft tissue swelling. IMPRESSION: No acute bony abnormality is detected. Left foot, 3 views, 06/15/2017: No fracture or dislocation is identified. There are minimal degenerative changes at scattered interphalangeal joints. There is mild subcutaneous edema.
== END | disposition home or self-care (01) ==
LOC: RAD 10:52
PROVIDERS: ATTEND Physician Assistant
DX: M25.572 Pain in left ankle and joints of left foot (principal)
CPT/HCPCS: 73610; 73630

== ENCOUNTER 2017-09-12 17:57 | Emergency (ER) | payer OTHER ==
[~2017-09-12] VITALS: Ht 167.6 cm; Wt 89.8 kg
[2017-09-12 18:42] VITALS: BP 155/91
[2017-09-12] MEDS ORDERED: KETOROLAC 60 MG/2 ML INJ. IM ONE (19:30)
--- NOTE | 2017-09-12 19:30 | ED.ADGEN ---
Past Medical History Past Medical History: Depression, GERD, High Cholesterol, Hypertension, Unknown Additional Past Medical Histor: SPASAMS,CHRONIC PAIN,NEUROPATHY Past Surgical History: Other Additional Past Surgical Histo: UNKNOWN Alcohol Use: None Drug Use: None Adult General Chief Complaint Chief Complaint: SHOULDER INJURY HPI HPI Patient is a 57 year old woman, history of hypertension, chronic shoulder pain and neuropathy, who presents to the emergency department with complaint of "muscle spasms", and her left upper extremity radiating into the left neck, after receiving a cortisone injection in the shoulder on Wednesday. Patient states that she's been having worsening pain since injection performed, states that "this Dr. Dunne differently than my usual doctor". She denies any fevers or chills, any swelling, any numbness or tingling, any nausea or vomiting, chest pain or shortness breath. Patient is holding her arm extended over her head and flexed, states she is more comfortable this way. She states she is having any headache or vision changes, states that she did try taking ibuprofen at home without any improvement of her symptoms. She has not spoken to her primary care provider at this time. Review of Systems Review of Systems Constitutional: Denies fever or chills. [] Eyes: Denies change in visual acuity. [] HENT: Denies nasal congestion or sore throat. [] Respiratory: Denies cough or shortness of breath. [] Cardiovascular: Denies chest pain or edema. [] GI: Denies abdominal pain, nausea, vomiting, bloody stools or diarrhea. [] : Denies dysuria. [] Musculoskeletal: Denies back pain, complaining of pain in the right shoulder, states it is extending from the shoulder up into the neck and down the arm, described as "muscle cramps". Integument: Denies rash. [] Neurologic: Denies headache, focal weakness or sensory changes. [] Endocrine: Denies polyuria or polydipsia. [] Lymphatic: Denies swollen glands. [] Psychiatric: Denies depression or anxiety. [] Current Medications Current Medications Current Medications Medications (Trade) Dose Ordered Sig/Allison Start Time Stop Time Status Last Admin Dose Admin Diazepam (Valium) 10 mg 1X ONCE 09/12/17 19:30 09/12/17 19:31 DC 09/12/17 19:21 10 MG Ketorolac Tromethamine (Toradol Im) 60 mg 1X ONCE 09/12/17 19:30 09/12/17 19:31 DC 09/12/17 19:21 60 MG Allergies Allergies Allergies Coded Allergies Type Severity Reaction Last Updated Verified Sulfa (Sulfonamide Antibiotics) Allergy Intermediate 03/06/16 Yes Physical Exam Physical Exam Constitutional: Well developed, well nourished, no acute distress, non-toxic appearance. [] HENT: Normocephalic, atraumatic, bilateral external ears normal, oropharynx moist, no oral exudates, nose normal. [] Eyes: PERRLA, EOMI, conjunctiva normal, no discharge. [] Neck: Normal range of motion, no tenderness, supple, no stridor. []Negative Spurling sign. Cardiovascular:Heart rate regular rhythm, no murmur , S1, S2, rubs or gallops.[] Lungs & Thorax: Bilateral breath sounds clear to auscultation, no wheezing, rhonchi, rales. No chest wall crepitus or tenderness. [] Abdomen: Bowel sounds normal, soft, no tenderness, no rebound, rigidity, no guarding, no masses, no pulsatile masses. [] Skin: Warm, dry, no erythema, no rash. [] Back: No tenderness, no CVA tenderness. [] Extremities: Injection site is clean dry and intact, there is no erythema, patient complaining of pain throughout the entire arm, tenderness with palpation , complaining of "tightness and muscle spasm", full range of motion, but is most comfortable with our elevated. No cyanosis, no clubbing, ROM intact, no edema. [] Neurologic: Alert and oriented X 3, normal motor function, normal sensory function, no focal deficits noted. [] Psychologic: Affect normal, judgement normal, mood normal. [] Current Patient Data Vital Signs Vital Signs Date Time Temp Pulse Resp B/P (MAP) Pulse Ox O2 Delivery O2 Flow Rate FiO2 09/12/17 18:42 98.1 71 20 99 Room Air 98.1 EKG EKG Not indicated.[] Radiology/Procedures Radiology/Procedures Not indicated.[] Course & Med Decision Making Course & Med Decision Making Pertinent Labs and Imaging studies reviewed. (See chart for details) Patient is extending her arm up and over her head in the ED, complains of worsening pain when it is extended and internally rotated, no evidence of effusion, infection, or other concerning findings on examination. Patient is complaining mostly of cramping in the muscles extending up into the shoulder and down into the upper extremity. Patient states she's had similar symptoms previously, the ventricular muscle relaxers. Is agreeable to trialing an injection of Valium and Toradol in the ED. Patient denies any kidney issues, or other history or symptoms. Patient received IM injection of Valium and Toradol, and reevaluation states that her arm is feeling much better, she is now able to range motion without any difficulties, CT is rated to be discharged home. She states that she will contact her primary care provider to discuss this with her tomorrow as needed. I did give patient return instructions and precautions, paperwork was completed, including discharge instructions and cyclobenzaprine protrusion, however patient did exit the emergency department before receiving her written discharge instructions. Dragon Disclaimer Dragon Disclaimer This electronic medical record was generated, in whole or in part, using a voice recognition dictation system. Departure Disposition: 01 HOME, SELF-CARE Condition: IMPROVED Scripts Cyclobenzaprine Hcl (CYCLOBENZAPRINE HCL) 10 Mg Tablet 10 MG PO PRN TID Y for MUSCLE SPASMS, #12 TAB Prov: BHAVANI SHAW DO 09/12/17 BHAVANI SHAW DO Sep 12, 2017 19:30
[2017-09-12] MEDS ORDERED: CYCL10TA2 PO (19:52)
== END 2017-09-12 20:00 | disposition home or self-care (01) ==
LOC: ER 17:57
DX: M62.838 Other muscle spasm (principal); M25.511 Pain in right shoulder; F32.9 Major depressive disorder, single episode, unspecified; K21.9 Gastro-esophageal reflux disease without esophagitis; E78.00 Pure hypercholesterolemia, unspecified; I10 Essential (primary) hypertension; G89.29 Other chronic pain; G62.9 Polyneuropathy, unspecified; Z88.2 Allergy status to sulfonamides
CPT/HCPCS: 96372; 96374; 99284; J1885; J3360

== ENCOUNTER 2017-09-19 18:16 | Emergency (ER) | payer OTHER ==
[~2017-09-19 18:16] MED LIST changes: +CYCL10TA2 PO
[2017-09-19 19:32] VITALS: BP 129/92
[2017-09-19] MEDS ORDERED: CARI350T PO (19:36)
--- NOTE | 2017-09-19 20:50 | PHYS DOC ---
Past Medical History Past Medical History: High Cholesterol, Hypertension Additional Past Medical Histor: SPASAMS,CHRONIC PAIN,NEUROPATHY Past Surgical History: Appendectomy, Hysterectomy Additional Past Surgical Histo: UNKNOWN Alcohol Use: None Additional Information: quit approx 4 months ago Drug Use: Marijuana Adult General Chief Complaint Chief Complaint: SHOULDER INJURY [facility] HPI Patient is a 57 year old female who presents with shoulder pain. The patient has chronic pain issues and recently received a cortisone injection in her shoulder. She states that it did not help her pain and feels that her pain has increased. The patient is well known to the ED. She states that flexeril doesn' t work and neither has pain medication that she has at home. She denies injury and said that this is caused by her arthritis. Review of Systems Review of Systems Constitutional: Denies fever or chills [] Eyes: Denies change in visual acuity, redness, or eye pain [] HENT: Denies nasal congestion or sore throat [] Respiratory: Denies cough or shortness of breath [] Cardiovascular: No additional information not addressed in HPI [] GI: Denies abdominal pain, nausea, vomiting, bloody stools or diarrhea [] : Denies dysuria or hematuria [] Musculoskeletal: Denies back pain or joint pain [] Integument: Denies rash or skin lesions [] Neurologic: Denies headache, focal weakness or sensory changes [] Endocrine: Denies polyuria or polydipsia [] All other systems were reviewed and found to be within normal limits, except as documented in this note. Allergies Allergies Allergies Coded Allergies Type Severity Reaction Last Updated Verified Sulfa (Sulfonamide Antibiotics) Allergy Intermediate 03/06/16 Yes Physical Exam Physical Exam Constitutional: Well developed, well nourished, no acute distress, non-toxic appearance. [] Neck: Normal range of motion, no tenderness, supple, no stridor. [] Cardiovascular:Heart rate regular rhythm, no murmur [] Lungs & Thorax: Bilateral breath sounds clear to auscultation [] Skin: Warm, dry, no erythema, no rash. [] Back: No tenderness, no CVA tenderness. [] Extremities: Tenderness to right shoulder with movement, no cyanosis, no clubbing, ROM intact, no edema, pulses and sensation are intact distally [] Neurologic: Alert and oriented X 3, normal motor function, normal sensory function, no focal deficits noted. [] Psychologic: Affect normal, judgement normal, mood tearful when describing her need for pain control. [] Current Patient Data Vital Signs Vital Signs Date Time Temp Pulse Resp B/P (MAP) Pulse Ox O2 Delivery O2 Flow Rate FiO2 09/19/17 19:32 97.8 83 20 98 Room Air 97.8 EKG EKG [] Radiology/Procedures Radiology/Procedures [] Course & Med Decision Making Course & Med Decision Making Pertinent Labs and Imaging studies reviewed. (See chart for details) []1. Shoulder pain You were given a prescription for Soma. Please use this as directed. Follow up with your PCP tomorrow for a possible joint injection. Dragon Disclaimer Dragon Disclaimer This electronic medical record was generated, in whole or in part, using a voice recognition dictation system. Departure Departure Impression: Primary Impression: Shoulder pain Disposition: 01 HOME, SELF-CARE Condition: STABLE Patient Instructions: Shoulder Pain, [id number] Additional Instructions: Please clear primary care provider tomorrow morning for an appointment evaluate if a second shoulder injection would be appropriate. You may use hot compresses or cold packs for pain relief. Please use the medication as directed and return to the ED if worsening. Scripts Carisoprodol (SOMA) 350 Mg Tablet 1 TAB PO QHS, #10 TAB Prov: NATALIIA CRISOSTOMO APRN 09/19/17 NATALIIA CRISOSTOMO APRN Sep 19, 2017 20:50
== END 2017-09-19 19:53 | disposition home or self-care (01) ==
LOC: ER 18:16
DX: G89.29 Other chronic pain (principal); M25.511 Pain in right shoulder; E78.00 Pure hypercholesterolemia, unspecified; I10 Essential (primary) hypertension; F12.10 Cannabis abuse, uncomplicated; Z87.891 Personal history of nicotine dependence; Z88.2 Allergy status to sulfonamides
CPT/HCPCS: 99283

== ENCOUNTER 2017-09-23 14:24 | Emergency (ER) | payer OTHER ==
[~2017-09-23] VITALS: Ht 172.7 cm; Wt 89.8 kg
[~2017-09-23 14:24] MED LIST changes: +CARI350T PO
[2017-09-23 15:07] VITALS: BP 170/92
[2017-09-23] MEDS ORDERED: fentaNYL PF VIAL 100 MCG/2 ML VIAL IV ONE (15:15)
--- NOTE | 2017-09-23 15:21 | PHYS DOC ---
Past Medical History Past Medical History: High Cholesterol, Hypertension Additional Past Medical Histor: SPASAMS,CHRONIC PAIN,NEUROPATHY Past Surgical History: Appendectomy, Hysterectomy Additional Past Surgical Histo: UNKNOWN Alcohol Use: None Drug Use: Marijuana Adult General Chief Complaint Chief Complaint: SHOULDER INJURY HPI HPI Patient is a 57 year old female presents to the emergency department with chronic right shoulder pain. Patient states her initial injury was 10 years ago for the last 2-3 months she's had increasing pain. Patient states she has had a joint injection 4 weeks ago and she feels that made the problem worse. She has no loss range of motion but does have increased pain with range of motion. No radiation of pain. No other complaints Review of Systems Review of Systems Constitutional: Denies fever or chills [] Eyes: Denies change in visual acuity, redness, or eye pain [] HENT: Denies nasal congestion or sore throat [] Respiratory: Denies cough or shortness of breath [] Cardiovascular: No additional information not addressed in HPI [] GI: Denies abdominal pain, nausea, vomiting, bloody stools or diarrhea [] : Denies dysuria or hematuria [] Musculoskeletal: Right shoulder pain Integument: Denies rash or skin lesions [] Neurologic: Denies headache, focal weakness or sensory changes [] Endocrine: Denies polyuria or polydipsia [] All other systems were reviewed and found to be within normal limits, except as documented in this note. Current Medications Current Medications Current Medications Medications (Trade) Dose Ordered Sig/Allison Start Time Stop Time Status Last Admin Dose Admin Fentanyl Citrate (Fentanyl 2ml Vial) 50 mcg 1X ONCE 09/23/17 15:15 09/23/17 15:16 DC Allergies Allergies Allergies Coded Allergies Type Severity Reaction Last Updated Verified Sulfa (Sulfonamide Antibiotics) Allergy Intermediate 03/06/16 Yes Physical Exam Physical Exam Constitutional: Well developed, well nourished, tearful, non-toxic appearance. [ ] HENT: Normocephalic, atraumatic, bilateral external ears normal, oropharynx moist, no oral exudates, nose normal. [] Eyes: PERRLA, EOMI, conjunctiva normal, no discharge. [] Neck: Normal range of motion, no tenderness, supple, no stridor. [] Cardiovascular:Heart rate regular rhythm, no murmur [] Lungs & Thorax: Bilateral breath sounds clear to auscultation [] Skin: Warm, dry, no erythema, no rash. [] Back: No tenderness, no CVA tenderness. [] Extremities: Right shoulder exam: No swelling, no ecchymosis, no erythema. She has mild tenderness to palpate, diffusely, over the shoulder. Patient has both active and passive range of motion without difficulty without apparent increase in pain. Neurologic: Alert and oriented X 3, normal motor function, normal sensory function, no focal deficits noted. [] Current Patient Data Vital Signs Vital Signs Date Time Temp Pulse Resp B/P (MAP) Pulse Ox O2 Delivery O2 Flow Rate FiO2 09/23/17 15:07 97.8 87 24 99 Room Air 97.8 EKG EKG [] Radiology/Procedures Radiology/Procedures [] Course & Med Decision Making Course & Med Decision Making Pertinent Labs and Imaging studies reviewed. (See chart for details) She was placed in a sling, given fentanyl 50 g IM. She'll be discharged home with Naprosyn and plan for follow-up [] Dragon Disclaimer Dragon Disclaimer This electronic medical record was generated, in whole or in part, using a voice recognition dictation system. Departure Departure Impression: Primary Impression: Chronic right shoulder pain Additional Impression: Drug-seeking behavior Disposition: HOME, SELF-CARE Condition: LEFT WITHOUT BEING SEEN Referrals: CESAR RUVALCABA MD (PCP) ILIR BRIONES II, MD Patient Instructions: Chronic Pain, Chronic Pain Management Scripts Naproxen (NAPROSYN) 500 Mg Tablet 500 MG PO BID Y for PAIN, #20 TAB Prov: OLINDA CHOW APRN 09/23/17 Problem Qualifiers OLINDA CHOW APRN Sep 23, 2017 15:21
[2017-09-23] MEDS ORDERED: NAPR-683 PO (15:24)
[2017-09-23] MEDS ORDERED: fentaNYL PF VIAL 100 MCG/2 ML VIAL IM ONE (15:30)
== END 2017-09-23 15:32 | disposition home or self-care (01) ==
LOC: ER 14:24
DX: G89.29 Other chronic pain (principal); M25.511 Pain in right shoulder; Z76.5 Malingerer [conscious simulation]; E78.00 Pure hypercholesterolemia, unspecified; I10 Essential (primary) hypertension; G62.9 Polyneuropathy, unspecified; F12.10 Cannabis abuse, uncomplicated; Z90.49 Acquired absence of other specified parts of digestive tract; Z90.710 Acquired absence of both cervix and uterus; Z88.2 Allergy status to sulfonamides
CPT/HCPCS: 96372; 99283; J3010